=== PATIENT | female | born 1960 | race Caucasian/White ===

== ENCOUNTER → 2016-04-27 | Outpatient (CLI) | payer OTHER ==
[2016-04-27 11:23] LABS: CH 31.5; CHCM 33.1; HCT 49.6 % (34.0-46.0); HDW 2.27; HGB 15.8 gm/dL (11.4-16.0); MCH 30.4 pg (25.0-35.0); MCHC 31.8 g/dL (31.0-37.0); MCV 95.7 fL (80.0-100.0); Mean Platelet Volume 8.1; RBC 5.18 m/uL (3.80-5.40); RDW 14.2 % (11.5-15.5)
[2016-04-27 12:09] LABS: ALT 30 U/L (9-52); AST 17 U/L (14-36); Alkaline Phosphatase 79 U/L (38-126); Anion Gap 12 mmol/L; Blood Urea Nitrogen 11 mg/dL (7-17); Calcium 9.5 mg/dL (8.4-10.2); Carbon Dioxide 27 mmol/L (22-30); Chloride 105 mmol/L (98-107); Glucose 118 mg/dL (74-99); Non-African American GFR(MDRD) >60 (>60 ml/min/1.73 sqM); Potassium 4.4 mmol/L (3.5-5.1); Sodium 144 mmol/L (137-145); Total Bilirubin 0.5 mg/dL (0.2-1.3); Total Protein 7.5 g/dL (6.3-8.2)
[2016-04-27 13:00] LABS: Vitamin B12 319 pg/mL (239-931)
--- NOTE | 2016-04-27 13:29 | MR ---
EXAMINATION TYPE: MR brain wo/w con DATE OF EXAM: 04/27/2016 12:50 PM COMPARISON: None at this institution. HISTORY: MS, numbness/pain from chest down TECHNIQUE: Multiplanar, multisequence images of the brain and brainstem is performed without and with IV contras t, utilizing 13 mL intravenous MultiHance gadolinium contrast is administered intravenously. Demyeli nating disease protocol with additional Sagittal Flair sequence performed. FINDINGS: T2 Lesions Present : Yes Approximate Number of Lesions: Approximately 40-50 Locations Identified : No definitive infratentorial lesions. Predominately periventricular and deep w sheree matter lesions. Size of Reference Lesion(s): 1. 0.8 cm x 0.5 cm x 0.6 cm on axial image 20 and sagittal image 20 rig ht periventricular parietal lesion. Enhancing Lesion(s) Present: Yes a single 4 mm deep left frontal white matter lesion on axial image 21. T1 Hypointense Lesion(s) Present: Yes Change from Prior: N/A Diffusion weighted images demonstrate no evidence of a recent infarct or other diffusion abnormality. There is no worrisome extra-axial fluid collection. The ventricular system and cisternal spaces ar e normal in size and appearance. The brain volume is age appropriate. Midline structures demonstrate normal morphology. The craniocervical junction appears within normal limits. Post contrast images demonstrate no abnormal enhancement. The dural venous sinuses appear pa tent. There is mild mucosal thickening in both maxillary sinuses. There is patchy dependent fluid als o seen in left maxillary sinus. There is mild mucosal thickening bilateral sphenoid sinuses, right gr eater than left. There is mild to moderate mucosal thickening in bilateral ethmoid sinuses. Globes ar e slightly distorted by artifact bilaterally. IMPRESSION: 1. Moderate white matter changes presumed on basis of patient's known multiple sclerosis. Single enha ncing left frontal lesion noted. If old outside study becomes available an addendum may be issued to assess change. 2. Acute on chronic paranasal sinus disease as detailed above.
--- NOTE | 2016-04-27 13:47 | MR ---
MRI CERVICAL SPINE: MRI LUMBAR SPINE: CLINICAL HISTORY: Cervicalgia and lumbago per order. History of multiple sclerosis presents with head ache as well as stiffness and pain in neck for 6 months causing pain or weakness down both arms and f ingers per patient. Low back pain per patient. TECHNIQUE: Multiplanar, multisequence imaging of the cervical and lumbar spine are performed without IV contrast. Demyelinating disease protocol. COMPARISON: None. FINDINGS: C-SPINE: Sagittal images of the cervical spine show the craniocervical junction to appear within normal limits . There are multiple T2 hyperintense areas scattered throughout the cervical spinal cord, there is fa int lesion posterior C2 vertebral body level seen best on series 501 image 7. There is lesion at C1 r ing level on image 8. Additional smaller lesion posterior inferior C3 vertebral body level is present on same image. There is long segment lesion centered at C4-C5 disc space level where there is asymme tric AP diameter atrophy or narrowing, diameter narrowing is almost 50%. There is large plaque centra lly centered at C7-T1 disc space level seen on PD and T2-weighted images. There is suggestion of gopal tional plaques in the thoracic spinal cord on sagittal images. The vertebral body heights are normal. There is moderate to severe disc space narrowing C5-C6 level. Small posterior disc herniations are effacing anterior thecal sac at C4-C5 through C6-C7 levels on sa gittal images. The bone marrow signal intensity is within normal limits. No significant spurring is n oted. Axial images confirm posterior round faint plaque at C2 vertebral body level on axial image 59. There is additional left paracentral posterior faint plaque on axial image 49 at inferior C3 vertebral bod y level. There is additional heterogeneous posterior plaque centered at the C4-C5 disc space level se en best near axial image 36. AP cord flattening is present at this level. There is large plaque occup [place] significant portion of spinal cord at C7-T1 disc space level near image 15. Axial images otherwise show C2-C3 and C3-C4 levels to appear within normal limits. Axial images at C4-C5 level shows central disc protrusion effacing anterior thecal sac, bilateral kavon ral foramina are patent on axial image 39. Flattening of spinal cord is noted. Axial images at C5-C6 level show broad-based left paracentral disc protrusion effacing anterior theca l sac nearly up to ventral surface of spinal cord and causing asymmetric moderate left-sided neural f oraminal narrowing. Right-sided neural foramen is patent. Axial images at the C6-C7 level show right paracentral disc protrusion effacing anterolateral thecal sac on axial image 22, bilateral neural foramina are patent. Axial images at C7-T1 level are within normal limits. IMPRESSION: Multilevel demyelinating disease involvement and cervical spinal cord is seen as detailed above. Multilevel degenerative changes in mid to lower cervical levels is noted also as detailed abo ve. Involvement of thoracic spine is suspected. Consider dedicated thoracic spine MRI imaging to furt her evaluate. L-SPINE: FINDINGS: Sagittal images of the lumbar spine show vertebral body heights to appear satisfactory. The re is grade 1 anterolisthesis of L5 on S1 measured 5 mm from posterior vertebral body margin. Multi level disc desiccation is seen. Disc space heights are fairly well-maintained. No large posterior dis c herniations are present on sagittal images. The conus medullaris is normal in position and signal e nding at inferior L1 vertebral body level. The bone marrow signal intensity is within normal limits. Mild multilevel anterior spurring is present. Axial images show small left paracentral disc protrusion effacing anterolateral thecal sac at T12-L1 level on axial image 30, bilateral neural foramina are patent. Axial images at L1-L2, L2-L3, and L3-L4 levels are felt within normal limits. Axial images at the L4-L5 level show mild to moderate facet degenerative changes and ligamentum flavu m hypertrophy and mild broad disc bulge. Spinal canal is fairly well preserved. There is mild left gr eater than right neural foraminal narrowing at this level identified. Axial images at L5-S1 level show spondylolisthesis and moderate facet degenerative changes bilaterall y. There is effacement of the posterior lateral thecal sac. There is moderate to severe bilateral kavon ral foraminal narrowing at this level identified. IMPRESSION: Grade 1 anterolisthesis of L5 on S1. Multilevel generative changes are seen most prominen t at L5-S1 level where there is most pronounced bilateral neural foraminal narrowing predominantly du e to spondylolisthesis. Further details are noted as discussed above.
== END | disposition home or self-care (01) ==
LOC: RADMRIMAIN 10:49
PROVIDERS: ATTEND Nurse Practitioner Acute Care
DX: G35 Multiple sclerosis (principal); G93.9 Disorder of brain, unspecified; M47.812 Spondylosis without myelopathy or radiculopathy, cervical region; G37.9 Demyelinating disease of central nervous system, unspecified; M99.73 Connective tissue and disc stenosis of intervertebral foramina of lumbar region; M43.17 Spondylolisthesis, lumbosacral region; M47.817 Spondylosis without myelopathy or radiculopathy, lumbosacral region
CPT/HCPCS: 84439; 84481; 80053; 82607; 84443; 85027; 82306; 70553; 72141; 72148; 36415; A9577

== ENCOUNTER → 2016-05-23 | Outpatient (CLI) | payer OTHER ==
--- NOTE | 2016-05-23 16:34 | MR ---
EXAMINATION TYPE: MR thoracic spine wo con DATE OF EXAM: 05/23/2016 3:21 PM COMPARISON: MRI cervical spine April 27, 2016 HISTORY: Back pain, multiple sclerosis TECHNIQUE: Multiplanar, multisequence imaging of thoracic spine is performed without contrast FINDINGS: Spinal cord shows normal course and caliber as it courses the thoracic spine. On the counti ng sequence there is redemonstration of several T2 hyperintense plaque scattered throughout the cervi mayela spine. A large plaque centered at C7-T1 disc space is present. There is additional faint plaque p resent at T7-T8 level seen best on sagittal image 8 series 601. There is slightly longer plaque cente red at mid to inferior T9 vertebral body level on same image with additional faint more regular plaqu e centered at T11 vertebral body level on same image. Vertebral body heights and alignment are satisf actory. Disc space heights are fairly well-maintained. There are posterior disc herniations effacing anterior thecal sac at T6-T7 and T7-T8 levels on sagittal image 8 as well as additional posterior di sc herniation effacing anterior thecal sac at T11-T12 level on sagittal image 7. Mild multilevel ante rior spurring is present. Bone marrow signal intensity is maintained. Review of the axial images confirm central plaque C7-T1 level on axial image 20. Central disc protrusion mildly effacing anterior thecal sac at T6-T7 level is redemonstrated on axial image 2. Small central disc protrusion mildly effacing anterior thecal sac at T7-T8 level is identified on axi al image 17 series 701. Central T2 hyperintense plaque is confirmed at this level. There is left paracentral disc protrusion effacing anterolateral thecal sac on axial image 5 at T11-T 12 level confirmed. There is suspected heterogeneous faint T2 plaque seen best on axial image 4 confi rmed near T11 and T12 vertebral body level just above the conus. Additional plaque at roughly inferio r T9 vertebral body level is likely present seen best on axial image 12. IMPRESSION: Demyelinating plaques at several levels in the mid to lower thoracic spine and at cervica l thoracic junction are noted as detailed above.
== END | disposition home or self-care (01) ==
LOC: RADMRIMAIN 14:33
PROVIDERS: ATTEND Psychiatry & Neurology Neurology
DX: M51.24 Other intervertebral disc displacement, thoracic region (principal)
CPT/HCPCS: 72146

== ENCOUNTER → 2016-06-06 | Outpatient (CLI) | payer OTHER ==
[2016-06-06 17:23] LABS: Basophils # (A) 0.1 k/uL (0-0.2); Basophils % (A) 1 %; CH 31.8; CHCM 33.1; Eosinophils # (A) 0.3 k/uL (0-0.7); Eosinophils % (A) 3 %; HDW 2.29; HGB 16.1 gm/dL (11.4-16.0); Luc # (Auto) 0.35; Luc % (Auto) 3; Lymphocytes # (A) 3.3 k/uL (1.0-4.8); Lymphocytes % (A) 26 %; MCH 30.4 pg (25.0-35.0); MCHC 31.5 g/dL (31.0-37.0); MCV 96.5 fL (80.0-100.0); Mean Platelet Volume 8.4; Monocytes # (A) 0.5 k/uL (0-1.0); Monocytes % (A) 4 %; Neutrophils % (A) 64 %; RBC 5.28 m/uL (3.80-5.40); RDW 13.5 % (11.5-15.5); WBC 12.6 k/uL (3.8-10.6); WBC (Perox) 12.19
== END | disposition home or self-care (01) ==
LOC: LABWHC1 16:38
PROVIDERS: ATTEND Psychiatry & Neurology Neurology
DX: G35 Multiple sclerosis (principal); E55.9 Vitamin D deficiency, unspecified
CPT/HCPCS: 36415; 82306; 85025

== ENCOUNTER → 2017-01-23 | Outpatient (CLI) | payer OTHER ==
[2017-01-23 13:57] LABS: CH 31.9; CHCM 33.4; HCT 43.8 % (34.0-46.0); HDW 2.25; MCH 30.7 pg (25.0-35.0); MCHC 31.9 g/dL (31.0-37.0); MCV 96.3 fL (80.0-100.0); Mean Platelet Volume 8.7; RBC 4.55 m/uL (3.80-5.40); RDW 14.9 % (11.5-15.5); WBC 6.6 k/uL (3.8-10.6)
[2017-01-23 14:14] LABS: ALT 27 U/L (9-52); AST 16 U/L (14-36); Alkaline Phosphatase 83 U/L (38-126); Anion Gap 7 mmol/L; Blood Urea Nitrogen 14 mg/dL (7-17); Calcium 9.6 mg/dL (8.4-10.2); Carbon Dioxide 28 mmol/L (22-30); Chloride 105 mmol/L (98-107); Glucose 111 mg/dL (74-99); Non-African American GFR(MDRD) >60 (>60 ml/min/1.73 sqM); Potassium 5.2 mmol/L (3.5-5.1); Sodium 140 mmol/L (137-145); Total Bilirubin 0.2 mg/dL (0.2-1.3); Total Protein 6.7 g/dL (6.3-8.2)
[2017-02-03 08:44] LABS: Mis test requested (Blood) Stratify JCV
== END | disposition home or self-care (01) ==
LOC: LABWHC1 12:40
PROVIDERS: ATTEND Psychiatry & Neurology Pain Medicine
DX: G35 Multiple sclerosis (principal); R42 Dizziness and giddiness
CPT/HCPCS: 36415; 80053; 80074; 82306; 85027

== ENCOUNTER → 2018-03-06 | Outpatient (CLI) | payer MEDICARE ==
--- NOTE | 2018-03-06 10:16 | EST ---
EXERCISE STRESS AGE: 57 SEX: F HT: 5'1" WT: 140 PROTOCOL: Jose Stress Test STAGE: I DURATION OF EXERCISE: 5:01 HEART RATE REST: 73 BLOOD PRESSURE REST: 132/66 MAXIMUM HEART RATE ACHIEVED: 140 MAXIMUM BLOOD PRESSURE: 176/79 85% MPHR: 139 100% MPHR: 164 METS: 7.0 INDICATIONS: Chest pain. CLINICAL INFORMATION: STRESS DATA: Pretesting physical examination showed a heart rate of 73, pressure is 132/66 mmHg. Baseline EKG showed sinus mechanism. The patient exercised on the treadmill according to Jose protocol for a total of 5 minutes and achieved 7.0 METS. Max heart rate was 140, which is about 85% of maximum predicted heart rate. Maximum blood pressure was 176/79 mmHg. Clinically, the patient did not have any symptoms of chest pain or chest discomfort during the testing or in the recovery time. The EKG showed about 0.[address]-segment depression, seems to be horizontal and not meeting the criteria for ischemia. CONCLUSION: 1. Good exercise tolerance. 2. Mild EKG changes and response to exercise did not meet the criteria for ischemia. 3. The patient did not have any symptoms of chest pain or chest discomfort in response to exercise. MMODL / IJN: [id number] /
== END | disposition home or self-care (01) ==
LOC: RADNMMAIN 09:03
PROVIDERS: ATTEND Family Medicine
DX: R94.31 Abnormal electrocardiogram [ECG] [EKG] (principal)
CPT/HCPCS: 93017

== ENCOUNTER → 2018-04-16 | Outpatient (CLI) | payer MEDICARE ==
--- NOTE | 2018-04-20 09:34 | MM ---
Reason for exam: screening (asymptomatic). History: Patient is postmenopausal. Family history of breast cancer in sister at age 60. Took hormonal contraceptives for 3 years. Physical Findings: A clinical breast exam by your physician is recommended on an annual basis and results should be correlated with mammographic findings. MG Screening Mammo w CAD Bilateral CC and MLO view(s) were taken. No prior studies available for comparison. The breast tissue is extremely dense which could obscure a lesion on mammography. ASSESSMENT: Negative, BI-RAD 1 RECOMMENDATION: Routine screening mammogram of both breasts in 1 year.
== END | disposition home or self-care (01) ==
LOC: RADMAMWWP 12:32
PROVIDERS: ATTEND Family Medicine
DX: Z12.31 Encounter for screening mammogram for malignant neoplasm of breast (principal)
CPT/HCPCS: 77067

== ENCOUNTER 2018-05-08 06:23 | Day surgery (SDC) | payer MEDICARE ==
[2018-05-07 12:06] VITALS: BMI 25.6
[2018-05-08 06:58] VITALS: TEMP 98
[2018-05-08] MEDS ORDERED: LACTATED RINGERS 1,000 ML IV ONE (06:59)
[2018-05-08 07:02] LABS: Glucose,Whole Blood 95 mg/dL (75-99)
[2018-05-08] MEDS ORDERED: PROPOFOL 10 MG/ML 20 ML VIAL IV ONE (07:03)
--- NOTE | 2018-05-08 07:09 | P.GSHP ---
History of Present Illness H&P Date: 05/08/18 CHIEF COMPLAINT: Colon screen HISTORY OF PRESENT ILLNESS: The patient is a 57-year-old female who presents for colon screen. Lower endoscopy was offered for further evaluation and management. PAST MEDICAL HISTORY: Please see list. PAST SURGICAL HISTORY: Please see list. MEDICATIONS: Please see list. ALLERGIES: Please see list. SOCIAL HISTORY: No illicit drug use FAMILY HISTORY: No reports of Crohn disease or ulcerative colitis. REVIEW OF ORGAN SYSTEMS: CONSTITUTIONAL: No reports of fevers or chills. PHYSICAL EXAM: VITAL SIGNS: Stable GENERAL: Well-developed pleasant in no acute distress. HEENT: No scleral icterus. Extraocular movements grossly intact. Moist buccal mucosa. NECK: Supple without lymphadenopathy. CHEST: Unlabored respirations. Equal bilateral excursions. CARDIOVASCULAR: Regular rate and rhythm. Distal 2+ pulses. ABDOMEN: Soft, nontender, nondistended. MUSCULOSKELETAL: No clubbing, cyanosis, or edema. ASSESSMENT: 1. Colon screen. PLAN: 1. Recommend proceeding with a lower endoscopy Past Medical History Past Medical History: Diabetes Mellitus, Hyperlipidemia, Hypertension, Neurologic Disorder, Thyroid Disorder Additional Past Medical History / Comment(s): MS History of Any Multi-Drug Resistant Organisms: None Reported Past Surgical History: Breast Surgery Additional Past Surgical History / Comment(s): breast biopsy Past Anesthesia/Blood Transfusion Reactions: Postoperative Nausea & Vomiting ( PONV) Smoking Status: Current every day smoker - Past Family History Mother Family Medical History: No Reported History Medications and Allergies Home Medications Medication Instructions Recorded Confirmed Type Aspirin 325 mg PO DAILY 05/07/18 05/08/18 History Atorvastatin [Lipitor] 40 mg PO HS 05/07/18 05/08/18 History Cholecalciferol [Vitamin D3] 5,000 unit PO DAILY 05/07/18 05/08/18 History Dimethyl Fumarate [Tecfidera] 240 mg PO BID 05/07/18 05/08/18 History FLUoxetine HCL [PROzac] 20 mg PO DAILY 05/07/18 05/08/18 History Levothyroxine Sodium [Synthroid] 200 mcg PO DAILY 05/07/18 05/08/18 History Lisinopril [Prinivil] 10 mg PO DAILY 05/07/18 05/08/18 History metFORMIN HCL [Glucophage] 500 mg PO BID 05/07/18 05/08/18 History Allergies Allergy/AdvReac Type Severity Reaction Status Date / Time No Known Allergies Allergy Verified 05/07/18 11:47 Surgical - Exam Vital Signs Temp Pulse Resp BP Pulse Ox 98.0 F 62 20 135/60 96 05/08/18 06:49 05/08/18 06:49 05/08/18 06:49 05/08/18 06:49 05/08/18 06:49
--- NOTE | 2018-05-08 07:22 | P.PCN ---
Date of Procedure: 05/08/18 Description of Procedure: PREOPERATIVE DIAGNOSIS: Colonoscopy screening, initial POSTOPERATIVE DIAGNOSIS: Colonoscopy screening, initial OPERATION: Colonoscopy to the ileocecal valve and appendiceal orifice. SURGEON: Mary Russ MD. ANESTHESIA: MAC. INDICATIONS: The patient is a 57-year-old female who presents for her first colonoscopy screening. Benefits and risks were described and informed consent was obtained. DESCRIPTION OF PROCEDURE: The patient had undergone Gatorade, MiraLAX and Dulcolax prep. She had been brought into the operating room and laid in the left lateral decubitus position. After adequate intravenous sedation, the rectum was examined with 2% lidocaine jelly. No external hemorrhoids were encountered. The rectal tone was within normal limits. No lesions were palpated in the rectal vault. An Olympus colonoscope was advanced until the ileocecal valve and appendiceal orifice were clearly viewed. The prep was excellent with clear visualization of the mucosal folds. The scope was removed with visualization of each mucosal fold. No scattered diverticulosis was encountered. No colonic polyps were found. No evidence of focal colitis was found. Retroflexion of the scope demonstrated no internal hemorrhoids. The colon was desufflated. The patient had tolerated the procedure well. Withdrawal time was over 6 minutes. FINDINGS: No internal hemorrhoids No external prolapsed hemorrhoids. No arteriovenous malformations. No adenomatous polyps. No focal colitis. No sigmoid diverticulosis RECOMMENDATIONS: Lower endoscopy in 10 years, 2028. Plan - Discharge Summary New Discharge Prescriptions: No Action Lisinopril [Prinivil] 10 mg PO DAILY metFORMIN HCL [Glucophage] 500 mg PO BID FLUoxetine HCL [PROzac] 20 mg PO DAILY Cholecalciferol [Vitamin D3] 5,000 unit PO DAILY Atorvastatin [Lipitor] 40 mg PO HS Aspirin 325 mg PO DAILY Levothyroxine Sodium [Synthroid] 200 mcg PO DAILY Dimethyl Fumarate [Tecfidera] 240 mg PO BID Discharge Medication List Aspirin 325 mg PO DAILY 05/07/18 [History] Atorvastatin [Lipitor] 40 mg PO HS 05/07/18 [History] Cholecalciferol [Vitamin D3] 5,000 unit PO DAILY 05/07/18 [History] Dimethyl Fumarate [Tecfidera] 240 mg PO BID 05/07/18 [History] FLUoxetine HCL [PROzac] 20 mg PO DAILY 05/07/18 [History] Levothyroxine Sodium [Synthroid] 200 mcg PO DAILY 05/07/18 [History] Lisinopril [Prinivil] 10 mg PO DAILY 05/07/18 [History] metFORMIN HCL [Glucophage] 500 mg PO BID 05/07/18 [History]
[2018-05-08 07:29] VITALS: RESP 16
[2018-05-08 07:58] VITALS: BP 141/79; PULSE 57
== END 2018-05-08 07:58 | disposition home or self-care (01) ==
LOC: ORWHC2ENDO 06:23
PROVIDERS: ATTEND Surgery Plastic and Reconstructive Surgery
DX: Z12.11 Encounter for screening for malignant neoplasm of colon (principal); E11.9 Type 2 diabetes mellitus without complications; E78.5 Hyperlipidemia, unspecified; I10 Essential (primary) hypertension; E07.9 Disorder of thyroid, unspecified; F17.200 Nicotine dependence, unspecified, uncomplicated; G35 Multiple sclerosis; Z79.82 Long term (current) use of aspirin; Z79.890 Hormone replacement therapy; Z79.84 Long term (current) use of oral hypoglycemic drugs; Z79.899 Other long term (current) drug therapy
CPT/HCPCS: J2704; G0121

== ENCOUNTER → 2018-06-30 | Outpatient (CLI) | payer MEDICARE ==
[2018-06-30 10:47] LABS: Basophils % (A) 0 %; Eosinophils # (A) 0.2 k/uL (0-0.7); Eosinophils % (A) 4 %; HCT 43.4 % (34.0-46.0); HGB 14.2 gm/dL (11.4-16.0); Lymphocytes # (A) 0.7 k/uL (1.0-4.8); Lymphocytes % (A) 15 %; MCH 30.8 pg (25.0-35.0); MCHC 32.8 g/dL (31.0-37.0); Mean Platelet Volume 7.6; Monocytes # (A) 0.3 k/uL (0-1.0); Monocytes % (A) 6 %; Neutrophils # (A) 3.6 k/uL (1.3-7.7); Neutrophils % (A) 73 %; Platelet Count 188 k/uL (150-450); RBC 4.62 m/uL (3.80-5.40); RDW 13.9 % (11.5-15.5); WBC 4.9 k/uL (3.8-10.6)
[2018-06-30 17:39] LABS: HIV 1 AB Non-Reactive (Non-Reactive); HIV AB P24 Non-Reactive (Non-Reactive); HIV P24 AG Non-Reactive (Non-Reactive)
[2018-06-30 17:57] LABS: Folate, Serum 7.9 ng/mL
[2018-06-30 18:15] LABS: Albumin 3.9 g/dL (3.80-4.90); Albumin/Globulin Ratio 1.95 (1.60-3.17); Anion Gap 5.8 mmol/L (4.00-12.00); Calcium 9.2 mg/dL (8.7-10.3); Carbon Dioxide 27.2 mmol/L (21.6-31.8); Potassium 4.8 mmol/L (3.5-5.5); Total Bilirubin 0.4 mg/dL (0.2-1.2); Total Protein 5.9 g/dL (6.2-8.2)
[2018-06-30 18:29] LABS: Hepatitis B Core IgM Non-Reactive (Non-Reactive); Hepatitis B Surface AB- Quant 3.5 mIU/mL
[2018-07-01 05:43] LABS: Varicella IgM Antibody 0.28 INDEX (<=0.90)
== END | disposition home or self-care (01) ==
LOC: LABWHC1 06-24 15:53
PROVIDERS: ATTEND Psychiatry & Neurology Neurology
DX: G35 Multiple sclerosis (principal)
CPT/HCPCS: 36415; 80053; 82607; 82746; 84207; 84425; 84591; 85025; 86704; 86705; 86706; 86787; 87340; 87390

== ENCOUNTER → 2019-08-18 | Outpatient (CLI) | payer MEDICARE ==
[2019-08-18 12:56] LABS: Basophils % (A) 1 %; Eosinophils # (A) 0.2 k/uL (0-0.7); Eosinophils % (A) 3 %; HCT 45.8 % (34.0-46.0); HGB 15.2 gm/dL (11.4-16.0); Lymphocytes % (A) 18 %; MCH 31.9 pg (25.0-35.0); MCHC 33.2 g/dL (31.0-37.0); MCV 95.8 fL (80.0-100.0); Mean Platelet Volume 8.7; Monocytes # (A) 0.3 k/uL (0-1.0); Monocytes % (A) 6 %; Neutrophils # (A) 3.9 k/uL (1.3-7.7); Neutrophils % (A) 69 %; Platelet Count 181 k/uL (150-450); RBC 4.78 m/uL (3.80-5.40); RDW 13.5 % (11.5-15.5); WBC 5.7 k/uL (3.8-10.6)
[2019-08-18 18:40] LABS: African American GFR (CKD) 82.3 (60.0-200.0); Albumin 4.1 g/dL (3.80-4.90); Albumin/Globulin Ratio 1.78 (1.60-3.17); Anion Gap 7.4 mmol/L (4.00-12.00); BUN/Creat Ratio 12.22 Ratio (12.00-20.00); Calcium 9.3 mg/dL (8.7-10.3); Carbon Dioxide 25.6 mmol/L (21.6-31.8); Globulin 2.3 g/dL (1.6-3.3); Potassium 4.8 mmol/L (3.5-5.5); Total Bilirubin 0.3 mg/dL (0.3-1.2); Total Protein 6.4 g/dL (6.2-8.2)
[2019-08-18 18:48] LABS: T4, Free (Free Thyroxine) 1.2 ng/dL (0.80-1.80)
[2019-08-18 19:08] LABS: Folate, Serum 14.8 ng/mL
[2019-08-18 20:53] LABS: HIV 2 AB Non-Reactive (Non-Reactive); HIV AB P24 Non-Reactive (Non-Reactive); HIV P24 AG Non-Reactive (Non-Reactive)
[2019-08-18 23:13] LABS: Hemoglobin A1C 6.5 % (4.0-6.0)
[2019-08-20 08:04] LABS: Vit B1(Thiamine) 94 ug/L (38-122)
== END ==
LOC: LABWHC1 11:20
PROVIDERS: ATTEND Psychiatry & Neurology Pain Medicine
DX: G35 Multiple sclerosis (principal)
CPT/HCPCS: 36415; 80053; 82306; 82607; 82746; 83036; 84207; 84425; 84439; 84443; 84481; 84591; 85025; 87390

== ENCOUNTER → 2020-06-16 | Outpatient (CLI) | payer MEDICARE ==
[2020-06-17 00:58] LABS: Basophils # (A) 0.02 X 10*3/uL (0.00-0.10); Basophils % (A) 0.3 %; Eosinophils # (A) 0.11 X 10*3/uL (0.04-0.35); Eosinophils % (A) 1.5 %; HCT 40.7 % (37.2-46.3); HGB 13.4 g/dL (12.0-15.0); Lymphocytes # (A) 0.78 X 10*3/uL (0.90-5.00); Lymphocytes % (A) 10.5 %; MCH 31.5 pg (27.0-32.0); MCHC 32.9 g/dL (32.0-37.0); MCV 95.8 fL (80.0-97.0); Mean Platelet Volume 12.2 fL (9.5-12.2); Monocytes # (A) 0.67 X 10*3/uL (0.20-1.00); Neutrophils # (A) 5.87 X 10*3/uL (1.80-7.70); Neutrophils % (A) 78.6 %; Platelet Count 220 X 10*3/uL (140-440); RBC 4.25 X 10*6/uL (4.10-5.20); RDW 13.8 % (11.5-14.5); WBC 7.46 X 10*3/uL (4.50-10.00)
[2020-06-17 02:00] LABS: African American GFR (CKD) 81.7 (60.0-200.0); Albumin 4.4 g/dL (3.80-4.90); Anion Gap 4.3 mmol/L (4.00-12.00); BUN/Creat Ratio 12.22 Ratio (12.00-20.00); Calcium 9.1 mg/dL (8.7-10.3); Carbon Dioxide 27.7 mmol/L (21.6-31.8); Globulin 2.2 g/dL (1.6-3.3); Non-African American GFR(CKD) 70.5 (60.0-200.0); Potassium 4.3 mmol/L (3.5-5.5); Total Bilirubin 0.2 mg/dL (0.2-1.2); Total Protein 6.6 g/dL (6.2-8.2)
[2020-06-17 02:09] LABS: T4, Free (Free Thyroxine) 1.6 ng/dL (0.80-1.80)
[2020-06-17 04:07] LABS: Hemoglobin A1C 5.6 % (4.0-6.0)
[2020-06-17 04:33] LABS: Folate, Serum 12.8 ng/mL
[2020-06-17 05:48] LABS: Hepatitis B Core IgM Non-Reactive (Non-Reactive); Hepatitis B Surface AB- Quant 3.5 mIU/mL; Hepatitis B Surface Antibody Non-Reactive (Non-Reactive); Hepatitis B Surface Antigen Non-Reactive (Non-Reactive)
[2020-06-17 06:03] LABS: HIV 2 AB Non-Reactive (Non-Reactive); HIV AB P24 Non-Reactive (Non-Reactive); HIV P24 AG Non-Reactive (Non-Reactive)
[2020-06-19 05:45] LABS: Varicella IgM Antibody 0.44 INDEX (<=0.90)
[2020-06-20 07:28] LABS: Vit B1(Thiamine) 70 ug/L (38-122)
[2020-06-21 12:29] LABS: Nicotinamide None Detected; Nicotinic Acid None Detected; Nicotinuric Acid None Detected
== END | disposition home or self-care (01) ==
LOC: LABWHC1 15:13
PROVIDERS: ATTEND Psychiatry & Neurology Pain Medicine
DX: G35 Multiple sclerosis (principal); E07.9 Disorder of thyroid, unspecified; R53.83 Other fatigue; R89.9 Unspecified abnormal finding in specimens from other organs, systems and tissues; Z79.899 Other long term (current) drug therapy
CPT/HCPCS: 36415; 80053; 82306; 82607; 82746; 83036; 84207; 84425; 84439; 84443; 84481; 84591; 85025; 86704; 86705; 86706; 86787; 87340; 87390

== ENCOUNTER 2022-05-21 15:36 | Inpatient (IN) | payer MEDICARE ==
[2022-05-21] MEDS ORDERED: AMOXIC-POT CLAV 875-125MG 1 EACH TAB PO STA (15:48)
[2022-05-21] MEDS ORDERED: HYDROmorphone 0.5 MG/0.5 ML SYRINGE IVP STA (15:57)
[2022-05-21] MEDS ORDERED: PIPERACILLIN-TAZOBACTAM 3.375 GM in SODIUM CHLORIDE 0.9% 100 ML IVPB STA (15:57)
[2022-05-21] MEDS ORDERED: SODIUM CHLORIDE 0.9% 1,000 ML IV STA (15:58)
[2022-05-21] MEDS ORDERED: ONDANSETRON 4 MG/2 ML VIAL IVP STA (15:58)
[2022-05-21 16:33] LABS: Basophils % (A) 0 %; Eosinophils % (A) 0 %; HCT 45.1 % (34.0-46.0); HGB 15.4 gm/dL (11.4-16.0); Lymphocytes # (A) 1.1 k/uL (1.0-4.8); Lymphocytes % (A) 6 %; MCH 30.6 pg (25.0-35.0); MCV 89.8 fL (80.0-100.0); Mean Platelet Volume 8.9; Monocytes # (A) 0.6 k/uL (0-1.0); Monocytes % (A) 4 %; Neutrophils # (A) 15.1 k/uL (1.3-7.7); Neutrophils % (A) 89 %; Platelet Count 248 k/uL (150-450); RBC 5.03 m/uL (3.80-5.40); RDW 12.9 % (11.5-15.5)
[2022-05-21 16:51] LABS: ALT 23 U/L (4-34); AST 20 U/L (14-36); African American GFR (CKD) >90 (>60 ml/min/1.73 sqM); Albumin 4.3 g/dL (3.5-5.0); Alkaline Phosphatase 117 U/L (38-126); Anion Gap 9 mmol/L; Blood Urea Nitrogen 9 mg/dL (7-17); Calcium 9.6 mg/dL (8.4-10.2); Carbon Dioxide 23 mmol/L (22-30); Chloride 107 mmol/L (98-107); Glucose 155 mg/dL (74-99); Non-African American GFR(CKD) >90 (>60 ml/min/1.73 sqM); Potassium 4.2 mmol/L (3.5-5.1); Sodium 139 mmol/L (137-145); Total Bilirubin 0.5 mg/dL (0.2-1.3); Total Protein 7.5 g/dL (6.3-8.2)
--- NOTE | 2022-05-21 17:17 | CT ---
EXAMINATION TYPE: CT facial bones wo con DATE OF EXAM: 05/21/2022 COMPARISON: None HISTORY: LEFT SIDED FACIAL SWELLING CT DLP: 508 mGycm Automated exposure control for dose reduction was used. TECHNIQUE: CT scan of the sinuses is performed without contrast, axial images are obtained, coronal r eformatted images are also reviewed. Streak artifact from dental amalgam does limit evaluation. FINDINGS: There is left facial swelling noted. I do not see evidence for drainable abscess. No bony d estructive process appreciated. There is moderate left maxillary opacification compatible with Visualized portion of mastoid air cells show no abnormal opacification. The globes are intact bilate rally. IMPRESSION: Findings compatible with left facial cellulitis. There is no evidence for access.
[2022-05-21] MEDS ORDERED: methylPREDNISolone SOD SUCCI 125 MG/2 ML VIAL IV STA (18:00)
[2022-05-21] MEDS ORDERED: ONDANSETRON 4 MG/2 ML VIAL IVP PRN (18:11)
[2022-05-21] MEDS ORDERED: NALOXONE 0.4 MG/ML 1 ML VIAL IV PRN (18:11)
[2022-05-21] MEDS ORDERED: HYDROmorphone 0.5 MG/0.5 ML SYRINGE IVP PRN (18:11)
[2022-05-21] MEDS: SODIUM CHLORIDE 0.9% 1,000 ML IV SCH (18:24)
[2022-05-21] MEDS: KETOROLAC 15 MG/ML 1 ML VIAL IVP PRN (18:32)
--- NOTE | 2022-05-21 19:06 | ED ---
ENT HPI - General Chief complaint: Dental/Oral Stated complaint: dental abscess Time Seen by Provider: 05/21/22 15:47 Source: patient Mode of arrival: ambulatory Limitations: no limitations - History of Present Illness Initial comments: Patient is a 7-year-old female who presents to the emergency department for dental infection. Patient reports pain in her left lower molar yesterday and woke up today to significant swelling. Pain refractory to Tylenol and Motrin. Patient reports significant chills throughout the day with nausea. No reported fever or vomiting. No issues with swallowing or breathing. - Related Data Home Medications Medication Instructions Recorded Confirmed Aspirin 325 mg PO DAILY 05/07/18 05/08/18 Atorvastatin [Lipitor] 40 mg PO HS 05/07/18 05/08/18 Cholecalciferol [Vitamin D3] 5,000 unit PO DAILY 05/07/18 05/08/18 Dimethyl Fumarate [Tecfidera] 240 mg PO BID 05/07/18 05/08/18 FLUoxetine HCL [PROzac] 20 mg PO DAILY 05/07/18 05/08/18 Levothyroxine Sodium [Synthroid] 200 mcg PO DAILY 05/07/18 05/08/18 lisinopriL [Prinivil] 10 mg PO DAILY 05/07/18 05/08/18 metFORMIN HCL [Glucophage] 500 mg PO BID 05/07/18 05/08/18 Allergies Allergy/AdvReac Type Severity Reaction Status Date / Time No Known Allergies Allergy Verified 05/21/22 15:41 Review of Systems ROS Statement: Those systems with pertinent positive or pertinent negative responses have been documented in the HPI. ROS Other: All systems not noted in ROS Statement are negative. Past Medical History Past Medical History: Diabetes Mellitus, Hyperlipidemia, Hypertension, Neurologic Disorder, Thyroid Disorder Additional Past Medical History / Comment(s): MS History of Any Multi-Drug Resistant Organisms: None Reported Past Surgical History: Breast Surgery Additional Past Surgical History / Comment(s): breast biopsy Past Anesthesia/Blood Transfusion Reactions: Postoperative Nausea & Vomiting (PONV) Past Psychological History: Depression Smoking Status: Current every day smoker Past Alcohol Use History: Occasional Past Drug Use History: Marijuana - Past Family History Mother Family Medical History: No Reported History General Exam Limitations: no limitations General appearance: alert, in no apparent distress ENT exam: Absent: normal oropharynx (Eroded left lower molar with erythematous gingiva. No fluctuance noted. No drainable abscess. No tongue discoloration) Neck exam: Present: full ROM. Absent: normal inspection (Significant swelling of left mandible) Respiratory exam: Present: normal lung sounds bilaterally. Absent: respiratory distress, wheezes, rales, rhonchi, stridor Cardiovascular Exam: Present: regular rate, normal rhythm, normal heart sounds. Absent: systolic murmur, diastolic murmur, rubs, gallop, clicks GI/Abdominal exam: Present: soft, normal bowel sounds. Absent: distended, tenderness, guarding, rebound, rigid Neurological exam: Present: alert, oriented X3, CN II-XII intact Psychiatric exam: Present: normal affect, normal mood Skin exam: Present: warm, dry, intact, normal color. Absent: rash Course Vital Signs 05/21/22 05/21/22 15:39 18:30 Temperature 97.8 F 100.0 F H Pulse Rate 100 92 Respiratory 16 17 Rate Blood Pressure 145/69 174/71 O2 Sat by Pulse 96 95 Oximetry Medical Decision Making - Medical Decision Making Was pt. sent in by a medical professional or institution (, PA, MILL STENCILER, urgent care, hospital, or alf...) When possible be specific @ -[No] Did you speak to anyone other than the patient for history (EMS, parent, family, police, friend...)? What history was obtained from this source @ -[No] Did you review nursing and triage notes (agree or disagree)? Why? @ -[I reviewed and agree with nursing and triage notes] Were old charts reviewed (outside hosp., previous admission, EMS record, old EKG, old radiological studies, urgent care reports/EKG's, alf records)? Report findings @ -[No old charts were reviewed] Differential Diagnosis (chest pain, altered mental status, abdominal pain women, abdominal pain men, vaginal bleeding, weakness, fever, dyspnea, syncope, headache, dizziness, GI bleed, back pain, seizure, CVA, palpatations, mental health)? @ -Dental infection, cellulitis, abscess, Mariusz angina EKG interpreted by me (3pts min.). @ -[As above] X-rays interpreted by me (1pt min.). @ -[None done] CT interpreted by me (1pt min.). @ -CT facial bones shows cellulitis without evidence of abscess U/S interpreted by me (1pt. min.). @ -[None done] What testing was considered but not performed or refused? (CT, X-rays, U/S, labs)? Why? @ -[None] What meds were considered but not given or refused? Why? @ -[None] Did you discuss the management of the patient with other professionals (professionals i.e. DrHunter, PA, M[employer] STENCILER, lab, RT, psych nurse, social secretary, police stenographer, teacher, officer captain, welfare case worker)? Give summary @ Yes, discussed case with Ronak Means with [facility] who accepts admission. Dr. Chang on consult Was smoking cessation discussed for >3mins.? @ -[No] Was critical care preformed (if so, how long)? @ -[No] Were there social determinants of health that impacted care today? How? (Homelessness, low income, unemployed, alcoholism, drug addiction, transportation, low edu. Level, literacy, decrease access to med. care, long term, rehab)? @ -[No] Was there de-escalation of care discussed even if they declined (Discuss DNR or withdrawal of care, Hospice)? DNR status @ -[No] What co-morbidities impacted this encounter? (DM, HTN, Smoking, COPD, CAD, Cancer, CVA, ARF, Chemo, Hep., AIDS, mental health diagnosis, sleep apnea, morbid obesity)? @ -[None] Was patient admitted / discharged? Hospital course, mention meds given and route, prescriptions, significant lab abnormalities, going to OR and other pertinent info. @ -Admitted. Patient has dental infection requiring IV antibiotics due to systemic symptoms and signs. Patient has rigors during exam. Oral temperature is 99.1 F however patient took Motrin before arrival. Leukocytosis at 17.0. Blood cultures obtained. Zosyn initiated. Patient given Solu-Medrol for swelling. Pain and nausea controlled. Undiagnosed new problem with uncertain prognosis? @ -[No] Drug Therapy requiring intensive monitoring for toxicity (Heparin, Nitro, Insulin, Cardizem)? @ -[No] Were any procedures done? @ -[No] Diagnosis/symptom? @ -Dental infection Acute, or Chronic, or Acute on Chronic? @ Acute Uncomplicated (without systemic symptoms) or Complicated (systemic symptoms)? @ -Complicated Side effects of treatment? @ -[No] Exacerbation, Progression, or Severe Exacerbation? @ -[No] Poses a threat to life or bodily function? How? (Chest pain, USA, PR, pneumonia, PE, COPD, DKA, ARF, appy, cholecystitis, CVA, Diverticulitis, Homicidal, Suicidal, threat to staff... and all critical care pts) @ -Yes Dr. Souza is my attending - Lab Data Result diagrams: 05/21/22 16:19 05/21/22 16:19 Lab Results 05/21/22 05/21/22 05/21/22 Range/Units 16:19 16:19 16:19 WBC 17.0 H (3.8-10.6) k/uL RBC 5.03 (3.80-5.40) m/uL Hgb 15.4 (11.4-16.0) gm/dL Hct 45.1 (34.0-46.0) % MCV 89.8 (80.0-100.0) fL MCH 30.6 (25.0-35.0) pg MCHC 34.0 (31.0-37.0) g/dL RDW 12.9 (11.5-15.5) % Plt Count 248 (150-450) k/uL MPV 8.9 Neutrophils % 89 % Lymphocytes % 6 % Monocytes % 4 % Eosinophils % 0 % Basophils % 0 % Neutrophils # 15.1 H (1.3-7.7) k/uL Lymphocytes # 1.1 (1.0-4.8) k/uL Monocytes # 0.6 (0-1.0) k/uL Eosinophils # 0.0 (0-0.7) k/uL Basophils # 0.0 (0-0.2) k/uL Sodium 139 (137-145) mmol/L Potassium 4.2 (3.5-5.1) mmol/L Chloride 107 (98-107) mmol/L Carbon Dioxide 23 (22-30) mmol/L Anion Gap 9 mmol/L BUN 9 (7-17) mg/dL Creatinine 0.68 (0.52-1.04) mg/dL Est GFR (CKD-EPI)AfAm >90 (>60 ml/min/1.73 sqM) Est GFR (CKD-EPI)NonAf >90 (>60 ml/min/1.73 sqM) Glucose 155 H (74-99) mg/dL Plasma Lactic Acid Spenser 1.5 (0.7-2.0) mmol/L Calcium 9.6 (8.4-10.2) mg/dL Total Bilirubin 0.5 (0.2-1.3) mg/dL AST 20 (14-36) U/L ALT 23 (4-34) U/L Alkaline Phosphatase 117 (38-126) U/L Total Protein 7.5 (6.3-8.2) g/dL Albumin 4.3 (3.5-5.0) g/dL Disposition Clinical Impression: Dental infection Disposition: ADMITTED IP TO THIS HOSP Referrals: Nonstaff,Physician [Primary Care Provider] - 1-2 days
[2022-05-21] MEDS ORDERED: ACETAMINOPHEN TAB 500 MG TAB PO STA (21:23)
[2022-05-22 05:52] LABS: Glucose,Whole Blood 194 mg/dL (70-110)
[2022-05-22] MEDS: SODIUM CHLORIDE 0.9% 1,000 ML IV SCH ×4 (06:27→23:42)
[2022-05-22] MEDS ORDERED: DEXTROSE 50% SYRINGE 50 ML IVP PRN ×2 (08:48)
[2022-05-22] MEDS: FLUoxetine HCL 20 MG CAP PO SCH (09:38)
[2022-05-22] MEDS: PANTOPRAZOLE 40 MG TABLET PO SCH (09:38)
[2022-05-22] MEDS: ASPIRIN 81 MG PO SCH (09:38)
[2022-05-22] MEDS: NICOTINE 21MG/24HR PATCH TRANSDERM SCH (09:40)
[2022-05-22] MEDS: GLIMEPIRIDE 2 MG TAB PO SCH (10:22)
[2022-05-22] MEDS: CHOLECALCIFEROL 25 MCG (1000 IU) TABLET PO SCH (10:23)
[2022-05-22 11:22] LABS: Basophils % (A) 0 %; Eosinophils % (A) 0 %; HGB 12.8 gm/dL (11.4-16.0); Lymphocytes # (A) 1.1 k/uL (1.0-4.8); Lymphocytes % (A) 7 %; MCH 30.3 pg (25.0-35.0); MCHC 33.6 g/dL (31.0-37.0); MCV 90.3 fL (80.0-100.0); Mean Platelet Volume 8.8; Monocytes # (A) 0.7 k/uL (0-1.0); Monocytes % (A) 5 %; Neutrophils # (A) 13.9 k/uL (1.3-7.7); Neutrophils % (A) 87 %; Platelet Count 219 k/uL (150-450); RBC 4.21 m/uL (3.80-5.40)
[2022-05-22 11:46] LABS: Glucose,Whole Blood 148 mg/dL (70-110)
[2022-05-22] MEDS: INSULIN ASPART (NovoLOG) 100 UNIT/ML VIAL SQ SCH ×3 (11:59→20:42)
[2022-05-22] MEDS: AMPICILLIN-SULBACTAM 3 GM in SODIUM CHLORIDE 0.9% 100 ML IVPB SCH ×3 (12:02→23:38)
--- NOTE | 2022-05-22 14:51 | P.HPIM ---
History of Present Illness H&P Date: 05/22/22 This is a pleasant 61-year-old female who presented to the emergency department with increased pain and facial swelling to the left side with significant pain that started one day previous of her left lower molar with concerns for possible dental infection. Patient reports she does not have a established dentist that she goes to. Patient also reports she was experiencing some possible fevers and difficulty with nausea and inability to chew due to the pain. Patient reports she lives out in the [facility] and follows with Dr. Guerrero although without here for a neurology appointment with her neurologist Dr. Blanco as she is receiving Ocrevus infusions for her multiple sclerosis. Patient presented to the ER with increased pain and seeking further evaluation. Patient was given a dose of antibiotics in the form of Zosyn along with oral Augmentin and steroids while in the ER and was admitted with infectious disease consultation and left facial cellulitis. Patient underwent CT of the face while in the ER and findings were compatible with left facial cellulitis with no evidence of abscess noted. There is also no bony destructive process appreciated on CT as well. On reviewing of labs patient did have a white blood count of 17 on admission and repeat this morning is 16, hemoglobin is stable, sodium 139 with a potassium of 4.2 and current creatinine 0.68, blood sugars elevated and lactic acid was negative at 1.5. Patient reports she has a past medical history of diabetes, h yperlipidemia, MS, thyroid, depression. Patient admits to using marijuana with occasional social drinking not daily, and continues to smoke tobacco daily. Again patient was admitted with left facial cellulitis with infectious disease on consult. Review Of Systems: Constitutional: Reported fever with chills, no night sweats. No weight change. No weakness, fatigue or lethargy. No daytime sleepiness. EENT: No headache. No blurred vision or double vision, no loss of vision. No loss of Hearing, no ringing in the ears, no dizziness. No nasal drainage or congestion. No epistaxis. No sore throat. Reports a broken tooth in the left lower jaw Lungs: No shortness of breath, cough, no sputum production. No wheezing. Cardiovascular: No chest pain, no lower extremity edema. No palpitations. No paroxysmal nocturnal dyspnea. No orthopnea. No lightheadedness or dizziness. No syncopal episodes. Abdominal: No abdominal pain. Reports Intermittent nausea, no vomiting. No diarrhea. No constipation. No bloody or tarry stools.. reports loss of appetite. Genitourinary: No dysuria, increased frequency, urgency. No urinary retention. Musculoskeletal: No myalgias. No muscle weakness, no gait dysfunction, no frequent falls. No back pain. No neck pain. Reports some facial swelling and pain Integumentary: No wounds, no lesions. No rash or pruritus. No unusual bruising. No change in hair or nails. Neurologic: No aphasia. No facial droop. No change in mentation. No head injury. No headache. No paralysis. No paresthesia. Psychiatric: No depression. No anxiety. No mood swings. Endocrine: No abnormal blood sugars. No weight change. No excessive sweating or thirst. No cold intolerance. PHYSICAL EXAMINATION: GENERAL: The patient is alert and oriented x4, Well developed, well nourished. HEENT: Pupils are round and equally reacting to light. EOMI. no scleral icterus. No conjunctival pallor. Normocephalic, atraumatic. No pharyngeal erythema. No thyromegaly. Difficult to visualize with a flap over the tooth but there is a dental fracture on the left lower molar CARDIOVASCULAR: S1 and S2 muffled PULMONARY: diminished breath sounds bilaterally with no wheezing or rhonchi noted. ABDOMEN: soft. Nontender on exam. obese. non-distended, normoactive bowel so unds. No palpable organomegaly. MUSCULOSKELETAL: No joint swelling or deformity. EXTREMITIES: No cyanosis, clubbing, or pedal edema. NEUROLOGICAL: Gross neurological examination did not reveal any focal deficits. SKIN: No rashes. Assessment: Left lower molar Tooth fracture with decay with left-sided facial pain and swelling Left-sided facial cellulitis possibly secondary to above with no evidence of abscess noted on CT Leukocytosis secondary to above Diabetes mellitus, type II, [id number] History of multiple sclerosis Hyperlipidemia Hypothyroidism Continued ongoing tobacco use THC use GI prophylaxis DVT prophylaxis Full code Plan: Recommend to continue with current medications and management of antibiotics and infectious disease on consult. Patient did receive a dose of Unasyn along with oral Augmentin in the ER and was admitted for left facial cellulitis as noted on CT. Will resume home medications and recommend sliding scale with Accu-Cheks before meals and at bedtime and continue to hold oral diabetic agents for now Recommend soft diet as patient is having difficulty chewing due to the left facial swelling Encouraged increased activity as tolerated Infectious disease on consult and appreciate input and recommendations Patient does not have an established dentist and will need to provide resources on discharge The impression and plan of care has been dictated by Yana Araujo, nurse practitioner as directed. Dr. Digna MD I have performed a history and examination and MDM of this patient, discussed the same with the dictator, and agree with the dictator's assessment and plan as written ,documented as a scribe. Based on total visit time, I have performed more than 50% of the visit. Any additional findings or plans will be noted. Past Medical History Past Medical History: Diabetes Mellitus, Hyperlipidemia, Neurologic Disorder, Thyroid Disorder Additional Past Medical History / Comment(s): MS History of Any Multi-Drug Resistant Organisms: None Reported Past Surgical History: Breast Surgery Additional Past Surgical History / Comment(s): L breast biopsy, Past Anesthesia/Blood Transfusion Reactions: Postoperative Nausea & Vomiting (PONV) Past Psychological History: Depression Smoking Status: Current every day smoker Past Alcohol Use History: Occasional Additional Past Alcohol Use History / Comment(s): 1ppd for 14 yrs. Past Drug Use History: Marijuana Additional Drug Use History / Comment(s): occasional - Past Family History Mother Family Medical History: No Reported History Medications and Allergies Home Medications Medication Instructions Recorded Confirmed Type Atorvastatin [Lipitor] 40 mg PO 05/07/18 05/21/22 History Levothyroxine Sodium [Synthroid] 200 mcg PO DAILY 05/07/18 05/21/22 History Aspirin EC [Ecotrin Low Dose] 81 mg PO [facility] 05/21/22 05/21/22 History Cholecalciferol [Vitamin D3 (25 25 mcg PO [facility] 05/21/22 05/21/22 History Mcg = 1000 Iu)] Ezetimibe [Zetia] 10 mg PO 05/21/22 05/21/22 History FLUoxetine HCL 40 mg PO DAILY 05/21/22 05/21/22 History Glimepiride [[facility]maryl] [facility] 05/21/22 05/21/22 History Levothyroxine Sodium [Synthroid] 25 mcg PO DAILY 05/21/22 05/21/22 History Allergies Allergy/AdvReac Type Severity Reaction Status Date / Time No Known Allergies Allergy Verified 05/21/22 19:30 Physical Exam Vitals: Vital Signs Temp Pulse Pulse Resp BP BP Pulse Ox 05/22/22 08:00 91 17 05/22/22 06:59 98.1 F 91 17 134/82 94 L 05/22/22 05:33 97.9 F 94 20 157/64 95 05/22/22 05:21 97.9 F 84 16 128/58 97 05/22/22 03:10 16 05/22/22 02:12 16 05/22/22 01:04 16 05/21/22 23:08 97.9 F 05/21/22 21:18 100.1 F H 84 16 128/58 97 05/21/22 18:30 100.0 F H 92 17 174/71 95 05/21/22 15:39 97.8 F 100 16 145/69 96 Intake and Output 05/21/22 05/22/22 05/22/22 22:59 06:59 14:59 Other: Weight 67.585 kg 67.585 kg Results CBC & Chem 7: 05/22/22 10:48 05/21/22 16:19 Labs: Abnormal Lab Results - Last 24 Hours (Table) 05/21/22 05/21/22 05/22/22 Range/Units 16:19 16:19 05:50 WBC 17.0 H (3.8-10.6) k/uL Neutrophils # 15.1 H (1.3-7.7) k/uL Glucose 155 H (74-99) mg/dL POC Glucose (mg/dL) 194 H (70-110) mg/dL Thrombosis Risk Factor Assmnt - DVT/VTE Prophylaxis DVT/VTE Prophylaxis: Pharmacologic Prophylaxis ordered - Choose All That Apply Each Factor Represents 1 point: Age 41-60 years Thrombosis Risk Factor Assessment Total Risk Factor Score: 1 Thrombosis Risk Factor Assessment Level: Low Risk Assessment and Plan Time with Patient: Greater than 30
[2022-05-22 16:37] LABS: Glucose,Whole Blood 72 mg/dL (70-110)
[2022-05-22] MEDS: KETOROLAC 15 MG/ML 1 ML VIAL IVP PRN ×2 (17:06→23:41)
[2022-05-22 20:08] LABS: Glucose,Whole Blood 120 mg/dL (70-110)
[2022-05-22] MEDS: EZETIMIBE 10 MG TAB PO SCH (20:45)
[2022-05-22] MEDS: ATORVASTATIN 40 MG TAB PO SCH (20:45)
--- NOTE | 2022-05-22 22:03 | P.CONS ---
History of Present Illness - Reason for Consult Consult date: 05/22/22 Dental infection Requesting physician: Elizabeth Pizano - Chief Complaint Left lower jaw pain and swelling x few days - History of Present Illness Patient is a 61-year-old female presenting to the ER last evening for evaluation of left lower jaw pain and swelling patient mention she has been dealing with a left lower molar tooth infection that has been going on off for a while however over the last 3 days he has noticed to having increasing swelling redness to the left lower jaw area and the area has become more painful patient describes the pain to be dull aching to sharp almost 7-8 out of 10 no radiation with worsening swelling redness and pain the patient presented to hospital patient did not recall high-grade fever at home however she did have a low-grade fever 100.1 daily for her last night patient also have a white count of 16,000 with a left shift kidney function has been normal liver enzymes are normal patient did received Zosyn Solu-Medrol in the ER subsequently patient was started on oral Augmentin admitted to hospital infectious disease was consulted for further management of antibiotic therapy patient did have a face CT we did shows left facial swelling noted no drainable abscess no bony destruction process appreciated Review of Systems Positive point has been mentioned in the HPI rest of the systems are negative Past Medical History Past Medical History: Diabetes Mellitus, Hyperlipidemia, Neurologic Disorder, Thyroid Disorder Additional Past Medical History / Comment(s): MS History of Any Multi-Drug Resistant Organisms: None Reported Past Surgical History: Breast Surgery Additional Past Surgical History / Comment(s): L breast biopsy, Past Anesthesia/Blood Transfusion Reactions: Postoperative Nausea & Vomiting (PONV) Past Psychological History: Depression Smoking Status: Current every day smoker Past Alcohol Use History: Occasional Additional Past Alcohol Use History / Comment(s): 1ppd for 14 yrs. Past Drug Use History: Marijuana Additional Drug Use History / Comment(s): occasional - Past Family History Mother Family Medical History: No Reported History Medications and Allergies Home Medications Medication Instructions Recorded Confirmed Type Atorvastatin [Lipitor] 40 mg PO HS 05/07/18 05/21/22 History Levothyroxine Sodium [Synthroid] 200 mcg PO DAILY 05/07/18 05/21/22 History Aspirin EC [Ecotrin Low Dose] 81 mg PO [facility] 05/21/22 05/21/22 History Cholecalciferol [Vitamin D3 (25 25 mcg PO -[facility] 05/21/22 05/21/22 History Mcg = 1000 Iu)] Ezetimibe [Zetia] 10 mg PO HS 05/21/22 05/21/22 History FLUoxetine HCL 40 mg PO DAILY 05/21/22 05/21/22 History Glimepiride [Amaryl] 2 mg PO [facility] 05/21/22 05/21/22 History Levothyroxine Sodium [Synthroid] 25 mcg PO DAILY 05/21/22 05/21/22 History Amoxic-Pot Clav 875-125Mg 1 tab PO Q12HR 14 Days #28 tab 05/24/22 Rx [Augmentin 875-125] Ibuprofen [Motrin] 600 mg PO Q6HR PRN #60 tab 05/24/22 Rx Nicotine 21Mg/24Hr Patch [Habitrol] 1 patch TRANSDERM DAILY #30 patch 05/24/22 Rx Pantoprazole [Protonix] 40 mg PO [facility] #15 tab 05/24/22 Rx Allergies Allergy/AdvReac Type Severity Reaction Status Date / Time No Known Allergies Allergy Verified 05/21/22 19:30 Physical Exam Vitals: Vital Signs Temp Pulse Pulse Resp BP BP Pulse Ox 05/22/22 08:00 91 17 05/22/22 06:59 98.1 F 91 17 134/82 94 L 05/22/22 05:33 97.9 F 94 20 157/64 95 05/22/22 05:21 97.9 F 84 16 128/58 97 05/22/22 03:10 16 05/22/22 02:12 16 05/22/22 01:04 16 05/21/22 23:08 97.9 F 05/21/22 21:18 100.1 F H 84 16 128/58 97 05/21/22 18:30 100.0 F H 92 17 174/71 95 05/21/22 15:39 97.8 F 100 16 145/69 96 Intake and Output 05/21/22 05/22/22 05/22/22 22:59 06:59 14:59 Other: Weight 67.585 kg 67.585 kg GENERAL DESCRIPTION: Middle-aged female lying in bed, no distress. No tachypnea or accessory muscle of respiration use. HEENT: Shows Pallor , no scleral icterus. Oral mucous membrane is dry. Left lower jaw with swelling did have a bad dentition to the left lower jaw no drainage NECK: Trachea central, no thyromegaly. LUNGS: Unlabored breathing. Clear to auscultation anteriorly. No wheeze or crackle. HEART: S1, S2, regular rate and rhythm. No loud murmur ABDOMEN: Soft, no tenderness , guarding or rigidity, no organomegaly EXTREMITIES: No edema of feet. SKIN: No rash, no masses palpable. NEUROLOGICAL: The patient is awake, alert, oriented x3, mood and affect normal. Results CBC & Chem 7: 05/23/22 06:48 05/23/22 06:48 Labs: Abnormal Lab Results - Last 24 Hours (Table) 05/21/22 05/21/22 05/22/22 Range/Units 16:19 16:19 05:50 WBC 17.0 H (3.8-10.6) k/uL Neutrophils # 15.1 H (1.3-7.7) k/uL Glucose 155 H (74-99) mg/dL POC Glucose (mg/dL) 194 H (70-110) mg/dL Assessment and Plan (1) Dental infection Status: Acute Code(s): K04.7 - PERIAPICAL ABSCESS WITHOUT SINUS SNOMED Code(s): 689059395 Plan: 1patient presented to hospital with a left-sided lower jaw pain and swelling likely secondary to infected tooth and secondary cellulitis and will need to call for the polymicrobial oral saniya. 2we will start the patient on Unasyn 3 g every 6 hours. 3check inflammatory marker. we will follow on clinical condition and cultures to further adjust medication if needed Thank you for this consultation we will follow the patient along with you Time with Patient: Greater than 30
[2022-05-23 06:19] LABS: Glucose,Whole Blood 69 mg/dL (70-110)
[2022-05-23 06:40] LABS: Glucose,Whole Blood 97 mg/dL (70-110)
[2022-05-23] MEDS: INSULIN ASPART (NovoLOG) 100 UNIT/ML VIAL SQ SCH ×4 (06:44→20:42)
[2022-05-23] MEDS: PANTOPRAZOLE 40 MG TABLET PO SCH (06:45)
[2022-05-23] MEDS: LEVOTHYROXINE 100 MCG TAB PO SCH (06:45)
[2022-05-23] MEDS: AMPICILLIN-SULBACTAM 3 GM in SODIUM CHLORIDE 0.9% 100 ML IVPB SCH ×3 (06:45→18:34)
[2022-05-23] MEDS: LEVOTHYROXINE 25 MCG TAB PO SCH (06:45)
[2022-05-23 07:16] LABS: Basophils % (A) 0 %; Eosinophils % (A) 0 %; HCT 37.9 % (34.0-46.0); HGB 12.3 gm/dL (11.4-16.0); Lymphocytes # (A) 1.9 k/uL (1.0-4.8); Lymphocytes % (A) 19 %; MCH 29.8 pg (25.0-35.0); MCHC 32.5 g/dL (31.0-37.0); MCV 91.5 fL (80.0-100.0); Mean Platelet Volume 9.2; Monocytes # (A) 0.5 k/uL (0-1.0); Monocytes % (A) 5 %; Neutrophils # (A) 7.3 k/uL (1.3-7.7); Neutrophils % (A) 73 %; Platelet Count 198 k/uL (150-450); RBC 4.15 m/uL (3.80-5.40)
[2022-05-23 07:32] LABS: African American GFR (CKD) >90 (>60 ml/min/1.73 sqM); Anion Gap 1 mmol/L; Blood Urea Nitrogen 14 mg/dL (7-17); Calcium 8.5 mg/dL (8.4-10.2); Carbon Dioxide 27 mmol/L (22-30); Chloride 111 mmol/L (98-107); Glucose 105 mg/dL (74-99); Non-African American GFR(CKD) 81 (>60 ml/min/1.73 sqM); Potassium 4.3 mmol/L (3.5-5.1); Sodium 139 mmol/L (137-145)
--- NOTE | 2022-05-23 07:51 | P.GSCN ---
History of Present Illness Consult date: 05/23/22 Reason for Consult: Dental abscess left jaw Requesting physician: John Peterson History of present illness: 61-year-old female visiting the area and had trouble with her fractured molar the left posterior jaw approximately 1 month. Recently noticed rapid onset pain and swelling left mandible and presented to the emergency department. Due to her moved [place] patient has not found a dentist yet. Facial CT of the left jaw showed facial cellulitis left no evidence of abscess noted. No the patient is under treatment for her MS with Ocrevus she was due to have it this week but it was delayed because of her facial abscess. Patient has improved significantly while on IV Unasyn as inpatient Review of Systems - Constitutional Reports as per HPI Past Medical History Past Medical History: Diabetes Mellitus, Hyperlipidemia, Neurologic Disorder, Thyroid Disorder Additional Past Medical History / Comment(s): MS History of Any Multi-Drug Resistant Organisms: None Reported Past Surgical History: Breast Surgery Additional Past Surgical History / Comment(s): L breast biopsy, Past Anesthesia/Blood Transfusion Reactions: Postoperative Nausea & Vomiting (PONV) Past Psychological History: Depression Smoking Status: Current every day smoker Past Alcohol Use History: Occasional Additional Past Alcohol Use History / Comment(s): 1ppd for 14 yrs. Past Drug Use History: Marijuana Additional Drug Use History / Comment(s): occasional - Past Family History Mother Family Medical History: No Reported History Medications and Allergies Home Medications Medication Instructions Recorded Confirmed Type Atorvastatin [Lipitor] 40 mg PO 05/07/18 05/21/22 History Levothyroxine Sodium [Synthroid] 200 mcg PO DAILY 05/07/18 05/21/22 History Aspirin EC [Ecotrin Low Dose] 81 mg PO -[facility] 05/21/22 05/21/22 History Cholecalciferol [Vitamin D3 (25 25 mcg PO -[facility] 05/21/22 05/21/22 History Mcg = 1000 Iu)] Ezetimibe [Zetia] 10 mg PO 05/21/22 05/21/22 History FLUoxetine HCL 40 mg PO DAILY 05/21/22 05/21/22 History Glimepiride [Amaryl] 2 mg PO -[facility] 05/21/22 05/21/22 History Levothyroxine Sodium [Synthroid] 25 mcg PO DAILY 05/21/22 05/21/22 History Allergies Allergy/AdvReac Type Severity Reaction Status Date / Time No Known Allergies Allergy Verified 05/21/22 19:30 Surgical - Exam Vital Signs Temp Pulse Resp BP Pulse Ox 97.8 F 100 16 145/69 96 05/21/22 15:39 05/21/22 15:39 05/21/22 15:39 05/21/22 15:39 05/21/22 15:39 Patient Seen Date: 05/23/22 Patient Seen Time: 07:30 Patient resting in bed awake alert and oriented 3 comfortable. She reports that she is doing much better now with the IV antibiotics she has received. She's able to scoot to the edge of the bed to sit up open her mouth approximately 35 mm without difficulty. She points to broken molar most likely tooth #17 standing alone in the back of her left mandible. This tooth crown was fractured at the gumline with evidence of old decay consistent with a story of crown breaking off the last month. Vestibular swelling associated with this tooth is nonfluctuant slightly tender and slightly red. Mucous membranes are moist, patient Mallen potty score of 2. Extraorally difficult to ascertain swelling visually but a 0.5 x 1 cm nonfluctuant swelling of the left body the mandible associated with tooth #17 is palpable slightly tender. Otherwise exams unremarkable. Results - Labs 05/23/22 06:48 05/23/22 06:48 Abnormal Lab Results - Last 24 Hours (Table) 05/21/22 05/22/22 05/22/22 Range/Units 16:19 10:48 11:45 WBC 16.0 H (3.8-10.6) k/uL Neutrophils # 13.9 H (1.3-7.7) k/uL Chloride (98-107) mmol/L Glucose (74-99) mg/dL POC Glucose (mg/dL) 148 H (70-110) mg/dL Hemoglobin A1c 6.8 H (0.0-6.0) % 05/22/22 05/23/22 05/23/22 Range/Units 20:06 06:17 06:48 WBC (3.8-10.6) k/uL Neutrophils # (1.3-7.7) k/uL Chloride 111 H (98-107) mmol/L Glucose 105 H (74-99) mg/dL POC Glucose (mg/dL) 120 H 69 L (70-110) mg/dL Hemoglobin A1c (0.0-6.0) % Microbiology - Last 24 Hours (Table) 05/21/22 16:15 Blood Culture - Preliminary Blood No Growth after 24 hours 05/21/22 16:00 Blood Culture - Preliminary Blood No Growth after 24 hours Diabetes panel 05/21/22 05/23/22 Range/Units 16:19 06:48 Sodium 139 (137-145) mmol/L Potassium 4.3 (3.5-5.1) mmol/L Chloride 111 H (98-107) mmol/L Carbon Dioxide 27 (22-30) mmol/L BUN 14 (7-17) mg/dL Creatinine 0.80 (0.52-1.04) mg/dL Glucose 105 H (74-99) mg/dL Hemoglobin A1c 6.8 H (0.0-6.0) % Calcium 8.5 (8.4-10.2) mg/dL Calcium panel 05/23/22 Range/Units 06:48 Calcium 8.5 (8.4-10.2) mg/dL Pituitary panel 05/23/22 Range/Units 06:48 Sodium 139 (137-145) mmol/L Potassium 4.3 (3.5-5.1) mmol/L Chloride 111 H (98-107) mmol/L Carbon Dioxide 27 (22-30) mmol/L BUN 14 (7-17) mg/dL Creatinine 0.80 (0.52-1.04) mg/dL Glucose 105 H (74-99) mg/dL Calcium 8.5 (8.4-10.2) mg/dL Adrenal panel 05/23/22 Range/Units 06:48 Sodium 139 (137-145) mmol/L Potassium 4.3 (3.5-5.1) mmol/L Chloride 111 H (98-107) mmol/L Carbon Dioxide 27 (22-30) mmol/L BUN 14 (7-17) mg/dL Creatinine 0.80 (0.52-1.04) mg/dL Glucose 105 H (74-99) mg/dL Calcium 8.5 (8.4-10.2) mg/dL Assessment and Plan Assessment: Dental abscess left mandible resolving with current antibiotic therapy. MS treatment is overdue and scheduled for June 04. Plan: Patient is a responding well to current antibiotic therapy and most likely meets criteria for discharge. Social barriers the patient not having a dentist has prevented her from having this tooth addressed. This has resulted in a 2 week delay in her MS treatment. Patient lives in [facility] and I offered to extract the tooth with IV sedation in my office today over the left. The phone number was given to her nurse and the patient was instructed to maintain her nothing by mouth status. Time with Patient: Less than 30
[2022-05-23] MEDS: ASPIRIN 81 MG PO SCH (09:08)
[2022-05-23] MEDS: GLIMEPIRIDE 2 MG TAB PO SCH (09:08)
[2022-05-23] MEDS: NICOTINE 21MG/24HR PATCH TRANSDERM SCH (09:08)
[2022-05-23] MEDS: FLUoxetine HCL 20 MG CAP PO SCH (09:08)
[2022-05-23] MEDS: CHOLECALCIFEROL 25 MCG (1000 IU) TABLET PO SCH (09:08)
[2022-05-23] MEDS: SODIUM CHLORIDE 0.9% 1,000 ML IV SCH (10:52)
[2022-05-23 11:21] LABS: Glucose,Whole Blood 71 mg/dL (70-110)
[2022-05-23] MEDS: KETOROLAC 15 MG/ML 1 ML VIAL IVP PRN (12:16)
--- NOTE | 2022-05-23 13:20 | P.PN ---
Subjective Progress Note Date: 05/23/22 Principal diagnosis: Left lower joint infection Patient is a 61-year-old female presenting to the ER last evening for evaluation of left lower jaw pain and swelling patient mention she has been dealing with a left lower molar tooth infection that has been going on off for a while, patient did have a CT that was negative for any drainable abscess patient has been evaluated by oral surgery recommending extraction of the teeth in the office on discharge. On today's evaluation that is 05/23/2022, the patient denies having any fever or any chills, the left lower jaw swelling redness minimally improved compared to yesterday denies any difficulty swallowing no chest pain or shortness of breath or cough no nausea no vomiting no abdominal pain no diarrhea Objective - Vital Signs Vital signs: Vital Signs Temp 98.4 F 05/23/22 07:19 Pulse 63 05/23/22 07:19 Resp 16 05/23/22 07:19 BP 157/58 05/23/22 07:19 Pulse Ox 100 05/23/22 07:19 FiO2 Intake & Output 05/22/22 05/23/22 05/23/22 18:59 06:59 18:59 Intake Total 1100 Balance 1100 Intake: Intake, IV Titration 1100 Amount Ampicillin-Sulbactam 3 gm 100 In Sodium Chloride 0.9% 100 ml @ 200 mls/hr IVPB Q6HR [facility] Rx#:[id number] Sodium Chloride 0.9% 1, 1000 000 ml @ 130 mls/hr IV . Q7H42M [facility] Rx#:[id number] Other: Voiding Method Toilet # Voids 2 - Exam GENERAL DESCRIPTION: A middle-age female lying in bed in no distress HEENT: Left lower jaw swelling slightly decreased RESPIRATORY SYSTEM: Unlabored breathing , decreased breath sounds at bases HEART: S1 S2 regular rate and rhythm , ABDOMEN: Soft , no tenderness EXTREMITIES: No edema feet - Labs CBC & Chem 7: 05/23/22 06:48 05/23/22 06:48 Labs: Abnormal Lab Results - Last 24 Hours (Table) 05/21/22 05/22/22 05/22/22 Range/Units 16:19 10:48 11:45 WBC 16.0 H (3.8-10.6) k/uL Neutrophils # 13.9 H (1.3-7.7) k/uL Chloride (98-107) mmol/L Glucose (74-99) mg/dL POC Glucose (mg/dL) 148 H (70-110) mg/dL Hemoglobin A1c 6.8 H (0.0-6.0) % 05/22/22 05/23/22 05/23/22 Range/Units 20:06 06:17 06:48 WBC (3.8-10.6) k/uL Neutrophils # (1.3-7.7) k/uL Chloride 111 H (98-107) mmol/L Glucose 105 H (74-99) mg/dL POC Glucose (mg/dL) 120 H 69 L (70-110) mg/dL Hemoglobin A1c (0.0-6.0) % Microbiology - Last 24 Hours (Table) 05/21/22 16:15 Blood Culture - Preliminary Blood No Growth after 24 hours 05/21/22 16:00 Blood Culture - Preliminary Blood No Growth after 24 hours Assessment and Plan (1) Dental infection Current Visit: Yes Status: Acute Code(s): K04.7 - PERIAPICAL ABSCESS WITHOUT SINUS SNOMED Code(s): 183662157 Plan: 1patient presented to hospital with a left-sided lower jaw pain and swelling likely secondary to infected tooth and secondary cellulitis and will need to cover for the polymicrobial oral saniya. 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 Time with Patient: Less than 30
[2022-05-23 16:29] LABS: Glucose,Whole Blood 66 mg/dL (70-110)
[2022-05-23 17:06] LABS: Glucose,Whole Blood 129 mg/dL (70-110)
[2022-05-23] MEDS: EZETIMIBE 10 MG TAB PO SCH (20:44)
[2022-05-23] MEDS: ATORVASTATIN 40 MG TAB PO SCH (20:44)
[2022-05-23 21:02] LABS: Glucose,Whole Blood 90 mg/dL (70-110)
[2022-05-24] MEDS: AMPICILLIN-SULBACTAM 3 GM in SODIUM CHLORIDE 0.9% 100 ML IVPB SCH ×2 (00:07→05:55)
[2022-05-24] MEDS: LEVOTHYROXINE 25 MCG TAB PO SCH (05:51)
[2022-05-24] MEDS: LEVOTHYROXINE 100 MCG TAB PO SCH (05:51)
[2022-05-24] MEDS: PANTOPRAZOLE 40 MG TABLET PO SCH (05:51)
[2022-05-24] MEDS: GLIMEPIRIDE 2 MG TAB PO SCH (05:55)
[2022-05-24 06:23] LABS: Glucose,Whole Blood 91 mg/dL (70-110)
[2022-05-24] MEDS: INSULIN ASPART (NovoLOG) 100 UNIT/ML VIAL SQ SCH (06:35)
--- NOTE | 2022-05-24 07:05 | P.PN ---
Subjective Progress Note Date: 05/23/22 This is a pleasant 61-year-old female who presented to the emergency department with increased pain and facial swelling to the left side with significant pain that started one day previous of her left lower molar with concerns for possible dental infection. Patient reports she does not have a established dentist that she goes to. Patient also reports she was experiencing some possible fevers and difficulty with nausea and inability to chew due to the pain. Patient reports she lives out in the [facility] and follows with Dr. Guerrero although without here for a neurology appointment with her neurologist Dr. Blanco as she is receiving Ocrevus infusions for her multiple sclerosis. Patient presented to the ER with increased pain and seeking further evaluation. Patient was given a dose of antibiotics in the form of Zosyn along with oral Augmentin and steroids while in the ER and was admitted with infectious disease consultation and left facial cellulitis. Patient underwent CT of the face while in the ER and findings were compatible with left facial cellulitis with no evidence of abscess noted. There is also no bony destructive process appreciated on CT as well. On reviewing of labs patient did have a white blood count of 17 on admission and repeat this morning is 16, hemoglobin is stable, sodium 139 with a potassium of 4.2 and current creatinine 0.68, blood sugars elevated and lactic acid was negative at 1.5. Patient reports she has a past medical history of diabetes, hyperlipidemia, MS, thyroid, depression. Patient admits to using marijuana with occasional social drinking not daily, and continues to smoke tobacco daily. Again patient was admitted with left facial cellulitis with infectious disease on consult. 05/23/2022 Patient was seen and evaluated and follow-up this morning continues with some left-sided lower facial swelling although looks clinically improved patient continues with extreme tenderness and induration of the left lower jaw. Patient was seen and evaluated by Dr. adamson and recommends extraction of the tooth. Patient would benefit from another day of IV antibiotics and appointment has been made for tomorrow at 11 AM the [facility] for patient have the tooth extracted. Patient is currently afebrile denies chest pain or shortness of b reath reports pain is tolerating improving since starting antibiotics. Discussed with infectious disease and agrees would benefit from one more day of IV antibiotics for 24 hours and then transition to oral antibiotics and discharged directly to the office for tooth extraction. Patient will be nothing by mouth at midnight Review of systems: Constitutional: No reports of fatigue, fever, or chills, reports facial tenderness and swelling Cardiovascular: No reports of chest pain or palpitations Respiratory: No reports of shortness of breath or cough GI: No reports of nausea, vomiting, or diarrhea : No reports of dysuria or retention Neurovascular: No reports of weakness or numbness All medications have been reviewed PHYSICAL EXAMINATION: GENERAL: The patient is alert and oriented x4, Well developed, well nourished. HEENT: Pupils are round and equally reacting to light. EOMI. no scleral icterus. No conjunctival pallor. Normocephalic, atraumatic. No pharyngeal erythema. No thyromegaly. Difficult to visualize with a flap over the tooth but there is a dental fracture on the left lower molar CARDIOVASCULAR: S1 and S2 muffled PULMONARY: diminished breath sounds bilaterally with no wheezing or rhonchi noted. ABDOMEN: soft. Nontender on exam. obese. non-distended, normoactive bowel sounds. No palpable organomegaly. MUSCULOSKELETAL: No joint swelling or deformity. EXTREMITIES: No cyanosis, clubbing, or pedal edema. NEUROLOGICAL: Gross neurological examination did not reveal any focal deficits. SKIN: No rashes. Assessment: Left lower molar Tooth fracture with decay with left-sided facial pain and swelling Left-sided facial cellulitis possibly secondary to above with no evidence of abscess noted on CT Leukocytosis secondary to above Diabetes mellitus, type II, [id number] History of multiple sclerosis Hyperlipidemia Hypothyroidism Continued ongoing tobacco use THC use GI prophylaxis DVT prophylaxis Full code Plan: Recommend to continue with current medications and management of antibiotics and infectious disease on consult. Patient did receive a dose of Unasyn along with oral Augmentin in the ER and was admitted for left facial cellulitis as noted on CT. discontinued on Unasyn every 6 hours per ID recommendations and we'll transition to oral Augmentin Patient was seen and evaluated by Dr. Adamson and like the patient to go directly to his office for tooth extraction an appointment has been made for 11 AM and [place] office on 05/24/2022 home medications resumed and recommend sliding scale with Accu-Cheks before meals and at bedtime, continue home diabetic medications as well Recommend soft diet as patient is having difficulty chewing due to the left facial swelling Encouraged increased activity as tolerated She will be discharged early a.m. after morning dose of antibiotics and nothing by mouth and instructed to go directly to the office for tooth extraction The impression and plan of care has been dictated by Yana Araujo, nurse practitioner as directed. Dr. Digna MD I have performed a history and examination and MDM of this patient, discussed the same with the dictator, and agree with the dictator's assessment and plan as written ,documented as a scribe. Based on total visit time, I have performed more than 50% of the visit. Any additional findings or plans will be noted. Objective - Vital Signs Vital signs: Vital Signs Temp 98.3 F 05/24/22 02:01 Pulse 96 05/24/22 02:01 Resp 18 05/24/22 02:01 BP 157/72 05/24/22 02:01 Pulse Ox 98 05/24/22 02:01 FiO2 Intake & Output 05/23/22 05/24/22 05/24/22 18:59 06:59 18:59 Intake Total 440 Balance 440 Intake: Intake, IV Titration 200 Amount Ampicillin-Sulbactam 3 gm 200 In Sodium Chloride 0.9% 100 ml @ 200 mls/hr IVPB Q6HR [facility] Rx#:[id number] Oral 240 Other: Voiding Method Toilet # Voids 3 2 - Labs CBC & Chem 7: 05/23/22 06:48 05/23/22 06:48 Labs: Abnormal Lab Results - Last 24 Hours (Table) 05/23/22 05/23/22 05/23/22 Range/Units 06:48 16:28 17:05 Chloride 111 H (98-107) mmol/L Glucose 105 H (74-99) mg/dL POC Glucose (mg/dL) 66 L 129 H (70-110) mg/dL Microbiology - Last 24 Hours (Table) 05/21/22 16:00 Blood Culture - Preliminary Blood No Growth after 48 hours 05/21/22 16:15 Blood Culture - Preliminary Blood No Growth after 48 hours
[2022-05-24 07:56] VITALS: BP 155/61; PULSE 76; RESP 16; TEMP 98.1
[2022-05-24] MEDS: FLUoxetine HCL 20 MG CAP PO SCH (08:27)
[2022-05-24] MEDS: ASPIRIN 81 MG PO SCH (08:27)
[2022-05-24] MEDS: CHOLECALCIFEROL 25 MCG (1000 IU) TABLET PO SCH (08:27)
[2022-05-24] MEDS: NICOTINE 21MG/24HR PATCH TRANSDERM SCH (08:27)
== END 2022-05-24 10:19 | disposition home or self-care (01) | DRG 603 ==
LOC: EC 15:36 → 4SSUR 18:13
PROVIDERS: ADMIT Hospitalist; ATTEND Hospitalist
DX: L03.211 Cellulitis of face (principal); K08.89 Other specified disorders of teeth and supporting structures; G35 Multiple sclerosis; E78.5 Hyperlipidemia, unspecified; E03.9 Hypothyroidism, unspecified; K04.7 Periapical abscess without sinus; Z79.890 Hormone replacement therapy; F17.210 Nicotine dependence, cigarettes, uncomplicated; F32.A Depression, unspecified; S02.5XXA Fracture of tooth (traumatic), initial encounter for closed fracture; E11.9 Type 2 diabetes mellitus without complications; Z71.6 Tobacco abuse counseling; Z79.84 Long term (current) use of oral hypoglycemic drugs; Z79.82 Long term (current) use of aspirin; Z79.899 Other long term (current) drug therapy
CPT/HCPCS: 36415; 70486; 80048; 80053; 83036; 83605; 85025; 87040; 96361; 96365; 96375; 99285